=== PATIENT | female | born 1980 | race Caucasian/White ===

== ENCOUNTER 2018-02-14 11:24 | Emergency (ER) | payer OTHER ==
[~2018-02-14] VITALS: Ht 165.1 cm; Wt 54.4 kg
[2018-02-14 11:59] LABS: URINE COLOR YELLOW
[2018-02-14 12:00] LABS: URINE CLARITY SLIGHTLY CLOUDY; URINE GLUCOSE-RANDOM* NEGATIVE (Negative); URINE KETONES 3+ (Negative); URINE PROTEIN (DIPSTICK) 1+ (Negative); URINE SPECIFIC GRAVITY >= 1.030 (1.005-1.035)
[2018-02-14 12:01] LABS: ICTOTEST (BILI CONFIRMATORY) Negative (Negative); URINE BILIRUBIN NEGATIVE (Negative); URINE BLOOD 1+ (Negative); URINE LEUKOCYTES-REFLEX NEGATIVE (Negative); URINE NITRITE-REFLEX NEGATIVE (Negative); URINE UROBILINOGEN 0.2 E.U./dl (0.2-1.0)
[2018-02-14 12:06] LABS: URINE REDUCING SUBSTANCE NEGATIVE
[2018-02-14 12:11] LABS: BASOPHILS 0.6 % (0.0-2.0); HEMATOCRIT 42.7 % (37.0-47.0); HEMOGLOBIN 14.8 gm/dL (12.0-15.0); LYMPHOCYTES 18.5 % (24.0-44.0); MCH 35.6 pg (26.0-34.0); MCHC 34.6 g/dL (28.0-37.0); MCV 102.8 fL (80.0-100.0); MONOCYTES 10.1 % (1.0-8.0); PLATELET COUNT 202 thou/uL (150-400); POLYS 70.8 % (36.0-66.0); RBC 4.15 mil/uL (4.20-5.00); RDW 13.6 % (10.5-14.5); WBC 5.6 thou/uL (4.0-11.0)
[2018-02-14 12:18] LABS: CALCIUM 9.4 mg/dL (8.5-10.1); CREATININE 0.8 mg/dL (0.6-1.0); POTASSIUM 3.4 mmol/L (3.5-5.1)
[2018-02-14 12:24] LABS: ALBUMIN 4.2 g/dL (3.4-5.0); TOTAL BILIRUBIN 0.6 mg/dL (<0.1-1.0); TOTAL PROTEIN 8.2 g/dL (6.4-8.2)
[2018-02-14 12:32] LABS: SQUAMOUS >10 Many /LPF (0-3)
[2018-02-14 12:33] LABS: CASTS None Seen /LPF (None Seen); CRYSTALS None Seen /LPF (None Seen); MUCUS 4-6 Moderate strn/LPF (None Seen)
[2018-02-14 12:34] LABS: URINE RBC 0-2 Rare /HPF (0-2); URINE WBC-REFLEX 6-15 Few /HPF (0-5)
[2018-02-14] MEDS ORDERED: XANAX1 MG PO (13:17)
[2018-02-14] MEDS ORDERED: NEURONTIN 300300 M1 PO (13:18)
[2018-02-14] MEDS ORDERED: ZANTAC 150MG T150 MG PO (13:18)
[2018-02-14] MEDS ORDERED: REMERON15 MG PO (13:19)
[2018-02-14] MEDS ORDERED: ZOFRAN ODT4 MG DISSOLVE ×2 (13:20→14:31)
[2018-02-14] MEDS ORDERED: PRILOSEC 20 MG20 MG PO (14:31)
[2018-02-14] MEDS ORDERED: BACTRIM DS TAB1 EACH PO (14:36)
[2018-02-14 15:18] VITALS: BP 109/74
== END 2018-02-14 15:19 | disposition home or self-care (01) ==
LOC: ER 11:24
PROVIDERS: Emergency Medicine
DX: N39.0 Urinary tract infection, site not specified (principal); E86.0 Dehydration; F41.9 Anxiety disorder, unspecified; F17.210 Nicotine dependence, cigarettes, uncomplicated; Z86.59 Personal history of other mental and behavioral disorders

== ENCOUNTER 2018-04-02 13:48 | Emergency (ER) | payer OTHER ==
[~2018-04-02] VITALS: Ht 165.1 cm; Wt 56.7 kg
[~2018-04-02 13:48] MED LIST: BACTRIM DS TAB1 EACH PO; NEURONTIN 300300 M1 PO; PRILOSEC 20 MG20 MG PO; REMERON15 MG PO; XANAX1 MG PO; ZANTAC 150MG T150 MG PO; ZOFRAN ODT4 MG DISSOLVE
[2018-04-02 15:42] LABS: BASOPHILS 0.8 % (0.0-2.0); HEMATOCRIT 43.3 % (37.0-47.0); LYMPHOCYTES 11.2 % (24.0-44.0); MCH 35.3 pg (26.0-34.0); MCHC 34.6 g/dL (28.0-37.0); MCV 102.2 fL (80.0-100.0); MONOCYTES 4.6 % (1.0-8.0); PLATELET COUNT 251 thou/uL (150-400); POLYS 83.4 % (36.0-66.0); RBC 4.24 mil/uL (4.20-5.00); RDW 12.5 % (10.5-14.5); WBC 10.8 thou/uL (4.0-11.0)
[2018-04-02 15:51] LABS: CALCIUM 9.4 mg/dL (8.5-10.1); CREATININE 0.7 mg/dL (0.6-1.0); POTASSIUM 3.6 mmol/L (3.5-5.1)
[2018-04-02 15:57] LABS: ALBUMIN 4.4 g/dL (3.4-5.0); TOTAL BILIRUBIN 0.6 mg/dL (<0.1-1.0); TOTAL PROTEIN 8.1 g/dL (6.4-8.2)
[2018-04-02 16:18] LABS: URINE BLOOD NEGATIVE (Negative); URINE CLARITY CLEAR; URINE COLOR YELLOW; URINE GLUCOSE-RANDOM* NEGATIVE (Negative); URINE KETONES 3+ (Negative); URINE LEUKOCYTES-REFLEX NEGATIVE (Negative); URINE NITRITE-REFLEX NEGATIVE (Negative); URINE PROTEIN (DIPSTICK) 1+ (Negative); URINE SPECIFIC GRAVITY >= 1.030 (1.005-1.035); URINE UROBILINOGEN 0.2 E.U./dl (0.2-1.0)
[2018-04-02 16:24] LABS: ICTOTEST (BILI CONFIRMATORY) Negative (Negative); URINE BILIRUBIN NEGATIVE (Negative)
[2018-04-02 16:26] LABS: AMP/METHAMP Negative (Negative); BARBITURATES Negative (Negative); BENZODIAZEPINES POSITIVE (Negative); COCAINE Negative (Negative); METHADONE Negative (Negative); OPIATES Negative (Negative); PCP Negative (Negative)
[2018-04-02 16:27] LABS: URINE REDUCING SUBSTANCE NEGATIVE
[2018-04-02] MEDS ORDERED: PROMS25 WY RECTAL (16:42)
[2018-04-02] MEDS ORDERED: ZOFRAN ODT4 MG DISSOLVE (16:42)
[2018-04-02 17:04] VITALS: BP 113/62
== END 2018-04-02 17:05 | disposition home or self-care (01) ==
LOC: ER 13:48
PROVIDERS: Physician Assistant
DX: F41.9 Anxiety disorder, unspecified (principal); E86.0 Dehydration; R11.2 Nausea with vomiting, unspecified; F17.210 Nicotine dependence, cigarettes, uncomplicated

== ENCOUNTER 2018-09-29 04:51 | Emergency (ER) | payer OTHER ==
[2018-09-29 04:51] VITALS: BP 105/60
[~2018-09-29 04:51] MED LIST changes: +PROMS25 WY RECTAL
[2018-09-29 05:28] LABS: ABSOLUTE NEUTROPHILS 2.1 thou/uL (1.4-8.2); BASOPHILS 0.5 % (0.0-2.0); EOSINOPHILS 1.7 % (0.0-3.0); HEMATOCRIT 43.4 % (37.0-47.0); HEMOGLOBIN 14.9 gm/dL (12.0-15.0); LYMPHOCYTES 57.3 % (24.0-44.0); MCH 35.7 pg (26.0-34.0); MCHC 34.4 g/dL (28.0-37.0); MCV 103.7 fL (80.0-100.0); MONOCYTES 5.4 % (1.0-8.0); PLATELET COUNT 236 thou/uL (150-400); POLYS 35.1 % (36.0-66.0); RBC 4.18 mil/uL (4.20-5.00)
[2018-09-29 05:30] LABS: ANION GAP 14 mmol/L (7-16); BUN 8 mg/dL (7-18); CALCIUM 9.3 mg/dL (8.5-10.1); CHLORIDE 104 mmol/L (98-107); CO2 26 mmol/L (21-32); CREATININE 0.8 mg/dL (0.6-1.0); GLUCOSE 93 mg/dL (74-106); POTASSIUM 3.7 mmol/L (3.5-5.1); SODIUM 144 mmol/L (136-145)
[2018-09-29 05:39] LABS: TROPONIN-I <0.06 ng/mL (<0.06)
== END 2018-09-29 05:01 | disposition left against medical advice (07) ==
LOC: ER 04:51
PROVIDERS: Emergency Medicine
DX: F10.129 Alcohol abuse with intoxication, unspecified (principal); R06.00 Dyspnea, unspecified; F17.210 Nicotine dependence, cigarettes, uncomplicated; F41.9 Anxiety disorder, unspecified

== ENCOUNTER 2018-10-11 02:33 | Emergency (ER) | payer OTHER ==
[~2018-10-11] VITALS: Ht 165.1 cm; Wt 49.9 kg
[2018-10-11] MEDS ORDERED: AMOXICILLIN 50500 MG (02:50)
[2018-10-11 03:24] LABS: URINE BILIRUBIN NEGATIVE (Negative); URINE BLOOD NEGATIVE (Negative); URINE CLARITY SL CLOUDY; URINE COLOR YELLOW; URINE GLUCOSE-RANDOM* NEGATIVE (Negative); URINE KETONES NEGATIVE (Negative); URINE LEUKOCYTES-REFLEX TRACE (Negative); URINE NITRITE-REFLEX NEGATIVE (Negative); URINE PROTEIN (DIPSTICK) NEGATIVE (Negative); URINE SPECIFIC GRAVITY <= 1.005 (1.005-1.035); URINE UROBILINOGEN 0.2 E.U./dl (0.2-1.0)
[2018-10-11 04:10] LABS: HEMATOCRIT 38.2 % (37.0-47.0); HEMOGLOBIN 13.5 gm/dL (12.0-15.0); MCH 36.5 pg (26.0-34.0); MCHC 35.4 g/dL (28.0-37.0); PLATELET COUNT 230 thou/uL (150-400); RBC 3.71 mil/uL (4.20-5.00); RDW 12.5 % (10.5-14.5); WBC 5.4 thou/uL (4.0-11.0)
[2018-10-11 04:15] VITALS: BP 146/81
[2018-10-11 04:16] LABS: ANION GAP 12 mmol/L (7-16); BUN 6 mg/dL (7-18); CALCIUM 8.4 mg/dL (8.5-10.1); CHLORIDE 105 mmol/L (98-107); CO2 27 mmol/L (21-32); CREATININE 0.6 mg/dL (0.6-1.0); GLUCOSE 87 mg/dL (74-106); POTASSIUM 3.3 mmol/L (3.5-5.1); SODIUM 144 mmol/L (136-145)
[2018-10-11 04:28] LABS: MAGNESIUM 2.2 mg/dL (1.8-2.4); SGOT 33 U/L (15-37); SGPT 20 U/L (30-65); TOTAL BILIRUBIN 0.4 mg/dL (<0.1-1.0); TOTAL PROTEIN 7.8 g/dL (6.4-8.2); TROPONIN-I <0.06 ng/mL (<0.06)
[2018-10-11 04:43] LABS: ABSOLUTE NEUTROPHILS 1.2 thou/uL (1.4-8.2)
[2018-10-11 04:44] LABS: ANISOCYTOSIS 1+; MACROCYTES 1+; PLATELET ESTIMATE NORMAL; POIKILOCYTOSIS 1+
--- NOTE | 2018-10-11 16:08 | EKG ---
[address] [address] ELECTROCARDIOGRAM REPORT Name: DANY IBARRA Room #: DEP [facility]#: [id number] Admission: 10/11/18 Attend Phys: Discharge: 10/11/18 Date of : 82 Report #: [id number] THIS REPORT FOR: //name// [facility] ED Test Date: 2018-10-11 Test Time: 02:50:31 Pat Name: DANY IBARRA Department: Room: Gender: F [employer]: [place] : 1980 Requested By: Jacob Frederick Order Number: [id number] MD: Jose A Ma Measurements Intervals Brewer Rate: 89 P: 82 MN: 159 QRS: 67 QRSD: 96 T: 76 QT: 391 QTc: 476 Interpretive Statements Sinus rhythm Normal tracing No previous ECG available for comparison Electronically Signed On 10-11-2018 16:08:08 CDT by Jose A Ma [email or web address] <ELECTRONICALLY SIGNED> By: Jose A Ma MD, [facility] 10/11/18 1608 0250 0250 Jose A Ma MD, FACC /EPI
== END 2018-10-11 04:15 | disposition home or self-care (01) ==
LOC: ER 02:33
PROVIDERS: Emergency Medicine
DX: F10.129 Alcohol abuse with intoxication, unspecified (principal); Y90.9 Presence of alcohol in blood, level not specified; R05 Cough; F41.9 Anxiety disorder, unspecified; F17.210 Nicotine dependence, cigarettes, uncomplicated; Y08.89XA Assault by other specified means, initial encounter; Y93.89 Activity, other specified; Y92.89 Other specified places as the place of occurrence of the external cause; Y99.8 Other external cause status